=== PATIENT | female | born 1985 | race African-American/Black ===

== ENCOUNTER 2016-12-06 08:28 | Emergency (ER) | payer BC, OTHER ==
[2016-12-06] MEDS ORDERED: Naproxen 500 MG TAB ONE (08:43)
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
== END 2016-12-06 10:01 | disposition home or self-care (01) ==
LOC: ERS 08:28
DX: M25.561 Pain in right knee (principal); Z79.891 Long term (current) use of opiate analgesic; Z79.899 Other long term (current) drug therapy; V49.50XA Passenger injured in collision with unspecified motor vehicles in traffic accident, initial encounter

== ENCOUNTER 2018-09-20 20:36 | Emergency (ER) | payer BC ==
[2018-09-20] MEDS ORDERED: Acetaminophen 500 MG TAB ONE (20:57)
[2018-09-20] MEDS ORDERED: Ketorolac Tromethamine 60 MG/2 ML VIAL ONE (20:57)
--- NOTE | 2018-09-20 21:17 | RAD ---
3 views right ankle: 09/20/2018 COMPARISON: None HISTORY: Injury, trauma, pain FINDINGS: No fracture or dislocation. No radiopaque foreign body or subcutaneous gas. IMPRESSION: No acute findings.
== END 2018-09-20 22:10 | disposition home or self-care (01) ==
LOC: ERS 20:36
DX: S86.001A Unspecified injury of right Achilles tendon, initial encounter (principal); X50.0XXA Overexertion from strenuous movement or load, initial encounter; Y93.62 Activity, american flag or touch football
CPT/HCPCS: 29515; 96372; J1885

== ENCOUNTER 2018-09-22 08:12 | Outpatient (CLI) | payer BC ==
[2018-09-23 13:56] LABS: Mean Corpuscular HGB CONC 34.1 g/dL (32.0-36.0); Mean Corpuscular Hemoglobin 29.8 pg (27.0-31.0); Mean Corpuscular Volume 87.2 fL (78.0-98.0); Mean Platelet Volume 9.2 fL (7.4-10.4); Platelet Count 187 thou/uL (130-400); RBC Distribution Width 11.8 % (11.5-14.5); Red Blood Cell (RBC) Count 4.38 mill/uL (4.20-5.40)
[2018-09-23 14:15] LABS: Anion Gap 10 mmol/L (10-20); BUN (Urea Nitrogen) 9 mg/dL (7.0-18.7); Calc. Creatinine Clearance 0 mL/min (70-130); Calcium 9.9 mg/dL (7.8-10.44); Carbon Dioxide 25 mmol/L (22-29); Chloride 106 mmol/L (98-107); Estimated GFR-MDRD Greater than 90; Glucose 70 mg/dL (70-105); Potassium 4.2 mmol/L (3.5-5.1); Sodium 137 mmol/L (136-145)
[2018-09-23 14:17] LABS: BHCG - Serum Negative (NEGATIVE); Pregs Control Background? CLEAR/WHITE (CLR/WHITE); Pregs Control Bar Appear? YES (CONTROL BAR)
== END 2018-09-22 08:13 | disposition home or self-care (01) ==
LOC: LABBT 08:12
PROVIDERS: ATTEND Orthopaedic Surgery
DX: Z01.812 Encounter for preprocedural laboratory examination (principal); S86.011A Strain of right Achilles tendon, initial encounter
CPT/HCPCS: 80048; 84703; 85027

== ENCOUNTER 2018-09-25 06:25 | Day surgery (SDC) | payer BC ==
[2018-09-23 13:11] VITALS: BMI 29.8
[2018-09-25] MEDS ORDERED: Midazolam HCl 2 mg/2 ml Vial ONE (08:14)
[2018-09-25] MEDS ORDERED: Fentanyl 100 MCG/2 ML VIAL ONE ×2 (08:14→10:29)
[2018-09-25] MEDS ORDERED: Bupivacaine PF 0.5% 30 ML VIAL ONE (08:33)
[2018-09-25] MEDS ORDERED: Lidocaine 2% PF 5 ML VIAL ONE (08:33)
[2018-09-25] MEDS ORDERED: ceFAZolin Sodium (SDC) 2 GM/100 ML BAG ONE (08:33)
[2018-09-25] MEDS ORDERED: Promethazine HCl 25 MG/ML VIAL IM PRN (09:17)
[2018-09-25] MEDS ORDERED: traMADol HCl 50 MG TAB PO PRN ×2 (09:17)
[2018-09-25] MEDS ORDERED: HYDROcodone/Acetaminophen 5/325 mg Tablet PO PRN ×2 (09:17)
[2018-09-25] MEDS ORDERED: Zolpidem Tartrate 5 MG TAB PO PRN (09:17)
[2018-09-25] MEDS ORDERED: Ondansetron PF 4 MG/2 ML Vial IVP PRN (09:17)
[2018-09-25] MEDS ORDERED: Ropivacaine 0.2% 550 ML 550 ML NERVE BLCK SCH (09:17)
[2018-09-25] MEDS ORDERED: Fentanyl 100 MCG/2 ML VIAL IV PRN (09:22)
[2018-09-25] MEDS ORDERED: HYDROcodone/Acetaminophen 5/325 mg Tablet ONE (12:04)
[2018-09-25] MEDS ORDERED: Ropivacaine 0.5% HCl/PF (150 MG/30 ML VIAL) ONE (13:46)
[2018-09-25] MEDS ORDERED: Ropivacaine 0.2% HCl/PF (40 MG/20 ML VIAL) ONE (13:46)
[2018-09-25] MEDS ORDERED: Lidocaine 1% PF 5 ML VIAL ONE (15:36)
[2018-09-25] MEDS ORDERED: PROPOFOL 200 MG/20 ML VIAL ONE (15:36)
[2018-09-25] MEDS ORDERED: Ketorolac Tromethamine 30 MG/ML VIAL ONE (15:36)
[2018-09-25] MEDS ORDERED: Glycopyrrolate 0.2 MG/ML 5 ML SYRINGE ONE (15:36)
[2018-09-25] MEDS ORDERED: Dexamethasone 20 MG/5 ML VIAL ONE (15:36)
[2018-09-25] MEDS ORDERED: Rocuronium Bromide 10 MG/ML (10ML VIAL) ONE (15:36)
[2018-09-25] MEDS ORDERED: Ondansetron PF 4 MG/2 ML Vial ONE (15:36)
--- NOTE | 2018-09-25 16:10 | OP ---
DATE OF PROCEDURE: 09/25/2018 PREOPERATIVE DIAGNOSIS: Right leg Achilles tendon traumatic rupture. POSTOPERATIVE DIAGNOSIS: Right leg Achilles tendon traumatic rupture. PROCEDURE PERFORMED: Open primary repair right Achilles tendon. [employer]: Bright Powell PA-C. ANESTHESIA: General via endotracheal tube augmented with indwelling lateral sciatic block. COMPONENTS USED: #2 Ethibond Lilly stitch. TOURNIQUET TIME: 33 minutes. FINDINGS: Mid-substance acute rupture right Achilles tendon. ESTIMATED BLOOD LOSS: Less than 10 mL. DRAINS: None. SPECIMENS: None. COMPLICATIONS: None. COUNTS: Correct. INDICATIONS FOR SURGERY: Inocencia is a 33-year-old female, who sustained an acute rupture of the right Achilles tendon 1 week ago. She was seen in clinic and elected to proceed with open primary repair of this problem. DESCRIPTION OF PROCEDURE: After informed consent was obtained in the preop holding area, the patient received preoperative antibiotics and she was taken to the operative suite where general anesthesia was induced and endotracheal tube was placed. Once I was completed, the patient was positioned appropriately in the prone position and the right lower extremity was then prepped and draped in usual sterile fashion. Prior to exsanguination, time-out was called, and all members of surgical team agreed upon site, surgeon, patient. Once this was completed, the extremity was exsanguinated and a longitudinal incision was made approximately 1 to 2 fingers medial to the Achilles tendon by palpation. The deeper subcutaneous layer was sharply undermined to the retinaculum, which was identified fully and then sharply incised. This was peeled away both anteriorly and circumferentially from around the tendon, the ends were identified, cleaned up with a rongeur and pulsatile lavage. Then, we used #2 Ethibond in a Lilly stitch circumferentially and weaved from [id number]. We had two ends protruding through each rupture. These were counter stitched over the top through the distal and proximal ends and tied on the anterior surface resulting in good approximation of the tendon. The wound was copiously irrigated with normal saline. Primary closure was accomplished with running 2-0 Vicryl of the paratenon. The subcutaneous layer was closed in an interrupted Vicryl and a running 0 Quill stitch and the skin was reapproximated with a running 2-0 Quill stitch and skin cement was applied to the incision. Sterile dressing was applied, and posterior splint in plantar flexion was then placed and allowed to cure. Tourniquet was dropped and the patient tolerated. The patient was put back in the supine position. She was extubated in the operative suite and taken to recovery room in stable condition. Job ID: [id number]
== END 2018-09-25 13:20 | disposition home or self-care (01) ==
LOC: SDC 06:25
PROVIDERS: ATTEND Orthopaedic Surgery
PROC: 0LQN0ZZ Repair Right Lower Leg Tendon, Open Approach (ICD-10-PCS; principal; 2018-09-25)
PROC: 3E0T3BZ Introduction of Anesthetic Agent into Peripheral Nerves and Plexi, Percutaneous Approach (ICD-10-PCS; principal; 2018-09-25)
DX: S86.011A Strain of right Achilles tendon, initial encounter (principal); G89.18 Other acute postprocedural pain
CPT/HCPCS: A4306; J0690; J1100; J1885; J2001; J2250; J2405; J2704; J2795; J3010; S0020

== ENCOUNTER 2021-02-09 16:49 | Emergency (ER) | payer OTHER, BC ==
[2021-02-09] MEDS ORDERED: Acetaminophen 500 MG TAB ONE (20:08)
== END 2021-02-09 20:25 | disposition home or self-care (01) ==
LOC: ERS 16:49
DX: S39.012A Strain of muscle, fascia and tendon of lower back, initial encounter (principal); S80.11XA Contusion of right lower leg, initial encounter; V43.52XA Car driver injured in collision with other type car in traffic accident, initial encounter
CPT/HCPCS: 99283